=== PATIENT | male | born 2000 | race Caucasian/White ===

== ENCOUNTER 2023-08-07 14:52 | Outpatient (AMB) | payer BC, MEDICAID, SELFPAY ==
--- NOTE | 2023-08-07 14:57 | MHC.PC.OV ---
Vital Signs 08/07/23 15:00 Height 6 ft Weight 212 lb 8 oz BMI 28.8 BP 120/76 Blood Pressure Location Lt brachial Position Sitting Pulse 76 Pulse Source Pulse Oximeter Pulse Oximetry (%) 99 Oxygen Delivery Method Room Air Intake Visit Reasons: New patient-Requesting physical Intake Note: Patient is here as a new patient, looking to establish care. Allergies No Known Allergies Allergy (Verified 08/07/23 15:01) Medication List - Last Reconciled 08/07/23 by Star Chris MD aripiprazole 2 mg PO DAILY desvenlafaxine ER 100 mg PO DAILY Tobacco use date assessed: 08/07/23 Dental Screening Dental Screen Date: 08/07/23 Did you have a dental visit in the last 12 months?: Yes Did you have a dental problem in the last 6 months where you did not have access to dental care?: No Was dental information given to patient?: Patient has dentist HPI New patient-Requesting physical HPI Details New Patient? ?? Prior PCP:?Dr Sanches Last office visit/CPE:? > 1 yr Acute issue(s): Signif anxity & depression ?? PMHx:? nursing home Depression & Anxiety Dr Disla at [facility]. SurgHx:? [place] teeth FHx:? Pt not sure SocHx:? Nosmoker, EtOH Special occassions, MJ daily. No other drugs [facility] Medical History (Updated 08/07/23 @ 15:45 by Adalberto Parham) Anxiety Depression Surgical History (Updated 08/07/23 @ 15:08 by Lluvia Sosa [facility]) [place] teeth extracted Family History (Updated 08/07/23 @ 15:10 by Lluvia Sosa CMA) Brother Autism Mental health disorder Social History (Updated 08/07/23 @ 15:14 by Lluvia Sosa CMA) Household Members: Family Both parents involved: Yes Caregiver staying overnight: No Housing: House Are you a primary director of health care marketing to a significant other at home: No Do you presently have visiting nurse or other home services: No 75 years or older and lives alone: No Alcohol intake: current Alcohol intake frequency: holidays/special occasions only Alcohol type: hard liquor Comment: mixed drinks. Patient Tobacco Use Status: Never used Tobacco e-Cigarette/Vaping Use: Currently Using Frequency of e-Cigarette/Vaping Use: sometimes Use of substances other than those prescribed or required for medical reasons: No Have you been hit, kicked, punched, or otherwise hurt by someone within the past year? If so, by whom?: No Do you feel safe in your current relationship?: Yes Is there a partner from a previous relationship who is making you feel unsafe now?: No Are you made to feel afraid or neglected: No Special kunal needs: No Agree to transfusion: Yes Are you DNR?: No Advance Directives: No Advance Directives Information Provided: No Advance Directives on File: No Healthcare Proxy: No service: No Current occupational status: student Cognitive needs: No Hearing needs: No Vision needs: Yes Questionnaire PHQ-9 Over the last 2 weeks, how often have you been bothered by any of the following problems? 1. Little interest or pleasure in doing things: several days 2. Feeling down, depressed, or hopeless: nearly every day 3. Trouble falling or staying asleep, or sleeping too much: nearly every day 4. Feeling tired or having little energy: several days 5. Poor appetite or overeating: not at all 6. Feeling bad about yourself - or that you are a failure or have let yourself or your family down: several days 7. Trouble concentrating on things, such as reading the newspaper or watching television: several days 8. Moving or speaking so slowly that other people could have noticed. Or the opposite - being so fidgety or restless that you have been moving around a lot more than usual: several days 9. Thoughts that you would be better off or of hurting yourself in some way: not at all Total score: 11 Depression Screening Interpretation: Positive Depression Screening Done: Yes 41797 - PHQ-9 Billing: Yes Source: Developed by Drs. Slava Siddiqi, Idalmis Mccray, Ken Carbajal and colleagues, with an educational lianne from [email or web address]. Thrive Questionnaire Date Thrive assessed: 08/07/23 I am a: Patient What is your living situation today?: I have a steady place to live Within the past 12 months, did the food you bought not last and you didn't have the money to get more?: Sometimes True Within the past 12 months, did you worry whether your food would run out before you got money to buy more?: Sometimes True Do you have trouble paying for medicines?: No Do you have trouble getting transportation to medical appointments?: No Do you have trouble paying your heating and electricity bill?: No Do you have trouble taking care of your child, family member or friend?: No Do you have trouble with day-to-day activities such as bathing, preparing meals, shopping, managing finances, etc.?: Yes Are you currently unemployed and looking for a job?: Yes Are you interested in more education?: Yes THRIVE Score: 2 AUDIT C Alcohol Use Questionnaire (AUDIT-C) 1. How often do you have a drink containing alcohol?: Monthly or less 2. How many drinks containing alcohol do you have on a typical day when you are drinking?: 3 or 4 3. How often do you have six or more drinks on one occasion?: Less than monthly Total Score: 3 ADIA-7 AMB Questionnaire ADIA-7 Date ADIA - 7 assessed: 08/07/23 Feeling nervous, anxious, or on edge: 1 = Several days Not being able to stop or control worryin = Several days Worrying too much about different things: 3 = Nearly every day Trouble relaxin = Nearly every day Being so restless that it is hard to sit still: 0 = Not at all Becoming easily annoyed or irritable: 3 = Nearly every day Feeling afraid as if something awful might happen: 0 = Not at all Total ADIA-7 score (0-4 normal; 5-9 mild; 10-14 moderate; 15-21 severe): 11 Source: Developed by Drs. Slava Siddiqi, Idalmis Mccray, Ken Carbajal and colleagues, with an educational lianne from [email or web address]. ADIA-7 Assessment Billing ADIA-7 Assessment Tool: ADIA-7 Assessment 71480 Review of Systems Const Denies chills, Denies fatigue, Denies fever(s), Denies headache(s) and Denies weakness ENT Denies dizziness and Denies headache(s) Card Denies chest pain, Denies lightheadedness, Denies dyspnea and Denies other (Palpitations) Resp Denies cough, Denies dyspnea, Denies wheezing and Denies other ( shortness of breath) Musc Denies numbness and Denies tingling Neuro Denies dizziness, Denies headache(s), Denies numbness, Denies tingling, Denies paresthesias and Denies weakness Psych Reports anxiety and Reports depression Endo Denies fatigue Aller/Immun Denies wheezing Physical exam (Primary Care) Vital Signs: Last Vital Signs Pulse 76 08/07/23 15:00 BP 120/76 08/07/23 15:00 Pulse Ox 99 08/07/23 15:00 Oxygen Delivery Method Room Air 08/07/23 15:00 BMI result Body Mass Index 28.8 Tobacco/Smoking Status: Tobacco use Status Tobacco use date assessed 08/07/23 08/07/23 15:16 Patient Tobacco Use Status Never used Tobacco 08/07/23 15:16 e-Cigarette/Vaping Use Currently Using 08/07/23 15:16 PHQ-9: PHQ-9 Score PHQ-9: Total score 11 08/07/23 15:24 Depression Screening Interpretation: Positive Thrive Assessment: Date of Thrive Assessment Date Thrive assessed 08/07/23 08/07/23 15:24 Const General: no acute distress and well developed Nutritional Appearance: well nourished Orientation/consciousness: patient oriented x3 [facility] Head: Yes normocephalic and Yes atraumatic Eyes General: appearance normal, both eyes and all related structures Pupils: Equal, round and reactive pupils present EOM: EOMs intact bilaterally Resp Effort & Inspection: normal respiratory effort Auscultation: clear to auscultation bilaterally Cardio Rate: regular rate Rhythm: regular rhythm Heart sounds: S1 normal heart sound present, S2 normal heart sound present, no gallops, no murmurs and no rubs Neuro General: patient oriented x3 and gait normal Cranial nerves: Yes Equal, round and reactive pupils present Psych Other: Depressed affect, no eye contact, depressed posture Affect: No normal affect Assessment and Plan Assessment & Plan (1) Depression with anxiety: Code(s): F41.8 - Other specified anxiety disorders Plan: Significantly?depressed?affect?with?poor?eye?contact,?depressed?posture?and?paucity?of?speech?and?movement. He?is?on?Desvenlafaxine?and?aripiprazole. He?has?tried?TMS?in?the?past?which?was?helpful?and?his?mom?and?psych?med?provider?are?working?on?getting?additional?treatments. He?has?had?a?therapist?in?the?past?and?I?offered?to?make?a?referral?but?he?declines?this?for?now.??Make?sure?he?understands?he?can?request?help?with?connection?to?a?therapist?at?any?time. Continue?medications?as?prescribed?and?follow-up?with?your?psych?med?provider. (2) Laboratory exam ordered as part of routine general medical examination: Code(s): Z00.00 - Encounter for general adult medical examination without abnormal findings Plan: Check?labs Orders: Orders Comprehensive [place]. Panel Fast Today Z00.00 - Encounter for general adult medical examination without abnormal findings Microalbumin, Random (w Creat) Today I10 - Essential (primary) hypertension Lipid Panel Today Z00.00 - Encounter for general adult medical examination without abnormal findings UA and rflx microscopic Today Z00.00 - Encounter for general adult medical examination without abnormal findings Hepatitis B,C Profile Today Z11.3 - Encounter for screening for infections with a predominantly sexual mode of transmission HIV Ab/Ag Today Z11.3 - Encounter for screening for infections with a predominantly sexual mode of transmission Complete Blood Count Auto Diff Today Z00.00 - Encounter for general adult medical examination without abnormal findings Hemoglobin A1c Today R73.01 - Impaired fasting glucose TSH reflex Free T4 Today Z00.00 - Encounter for general adult medical examination without abnormal findings CT NG by PCR Today Z11.3 - Encounter for screening for infections with a predominantly sexual mode of transmission Syphilis Screen Today Z11.3 - Encounter for screening for infections with a predominantly sexual mode of transmission Coding Level of Care Code New Pt Level 3 (38682) Diagnoses Depression with anxiety F41.8 Laboratory exam ordered as part of routine general medical examination Z00.00 Additional Codes ADIA-7 Assessment Billing - ADIA-7 Assessment Tool: ADIA-7 Assessment 36544 ([id number])
[2023-08-07 15:00] VITALS: BP 120/76; PULSE 76; O2SAT 99; BMI 28.8
== END 2023-08-07 15:54 | disposition home or self-care (01) ==
PROVIDERS: PCP Family Medicine; Visit Provider Family Medicine
DX: F41.8 Other specified anxiety disorders (principal)
CPT/HCPCS: 96127; 99203

== ENCOUNTER 2024-12-22 14:57 | Outpatient (AMB) | payer MEDICAID, SELFPAY ==
--- NOTE | 2024-12-22 14:59 | A.OFFPC_ITS ---
Vital Signs 12/22/24 15:09 Height 5 ft 10.59 in Weight 232 lb 4 oz BMI 32.8 BP 104/62 Blood Pressure Location Rt brachial Position Sitting Respiration 12 Pulse 74 Pulse Source Pulse Oximeter Temp 97.9 F Temp Source Oral Pulse Oximetry (%) 98 Oxygen Delivery Method Room Air Intake Visit Reasons: Annual PE Intake Note: Physical Relish Maker Required: No Allergies No Known Allergies Allergy (Verified 12/22/24 15:07) Medication List - Last Reconciled 12/22/24 by Star Chris MD No Known Home Meds Tobacco use date assessed: 12/22/24 Dental Screening Dental Screen Date: 12/22/24 Did you have a dental visit in the last 12 months?: Yes Did you have a dental problem in the last 6 months where you did not have access to dental care?: No Was dental information given to patient?: Patient has dentist HPI Annual PE HPI Details 24 y/o male presents for an extended exa m with f/u labs and health maint. No recent labs to review but pt notes he had gotten labs drawn. He notes he had seen some vitamin D deficiency. PHQ-9 18, ADIA-7 6 today. Reports mood disorder x10 years. Complaints of hair loss. [facility] Medical History (Updated 12/22/24 @ 15:42 by Adalberto Parham) Anxiety Depression Surgical History [place] teeth extracted Family History Brother Autism Mental health disorder Social History (Updated 12/22/24 @ 15:09 by Estela Jovel CMA) Household Members: Family Both parents involved: Yes Caregiver staying overnight: No Housing: House Are you a primary critical care physician assistant to a significant other at home: No Do you presently have visiting nurse or other home services: No 75 years or older and lives alone: No Alcohol intake: current Alcohol intake frequency: holidays/special occasions only Alcohol type: hard liquor Comment: mixed drinks. Patient Tobacco Use Status: Never used Tobacco e-Cigarette/Vaping Use: Currently Using Substance Use Type: Marijuana Special kunal needs: No Agree to transfusion: Yes service: No Current occupational status: unemployed Current occupation: Plans on going back to [employer] Cognitive needs: No Hearing needs: No Vision needs: Yes Questionnaire PHQ-9 Over the last 2 weeks, how often have you been bothered by any of the following problems? 1. Little interest or pleasure in doing things: several days 2. Feeling down, depressed, or hopeless: more than half the days 3. Trouble falling or staying asleep, or sleeping too much: more than half the days 4. Feeling tired or having little energy: nearly every day 5. Poor appetite or overeating: nearly every day 6. Feeling bad about yourself - or that you are a failure or have let yourself or your family down: nearly every day 7. Trouble concentrating on things, such as reading the newspaper or watching television: several days 8. Moving or speaking so slowly that other people could have noticed. Or the opposite - being so fidgety or restless that you have been moving around a lot more than usual: more than half the days 9. Thoughts that you would be better off or of hurting yourself in some way: several days Total score: 18 Depression Screening Interpretation: Positive Depression Screening Follow-up: In treatment Depression Screening Done: Yes 00819 - PHQ-9 Billing: Yes Source: Developed by Drs. Slava Siddiqi, Idalmis Mccray, Ken Carbajal and colleagues, with an educational lianne from [facility]. Thrive Questionnaire Date Thrive assessed: 12/19/24 I am a: Patient What is your living situation today?: I have a steady place to live Within the past 12 months, did the food you bought not last and you didn't have the money to get more?: Never true Within the past 12 months, did you worry whether your food would run out before you got money to buy more?: Never true Do you have trouble paying for medicines?: No Do you have trouble getting transportation to medical appointments?: No Do you have trouble paying your heating and electricity bill?: No Do you have trouble taking care of your child, family member or friend?: No Do you have trouble with day-to-day activities such as bathing, preparing meals, shopping, managing finances, etc.?: No Are you currently unemployed and looking for a job?: Yes Are you interested in more education?: Yes Please select the resources that you would like help with: Daily support, Job search/training and Education Currently or been in a relationship where the following occur: No concerns reported THRIVE Score: 0 AUDIT C Alcohol Use Questionnaire (AUDIT-C) 1. How often do you have a drink containing alcohol?: 2-4 times a month 2. How many drinks containing alcohol do you have on a typical day when you are drinking?: 3 or 4 3. How often do you have six or more drinks on one occasion?: Monthly Total Score: 5 ADIA-7 AMB Questionnaire ADIA-7 Date ADIA - 7 assessed: 12/22/24 Feeling nervous, anxious, or on edge: 1 = Several days Not being able to stop or control worryin = Several days Worrying too much about different things: 1 = Several days Trouble relaxin = Several days Being so restless that it is hard to sit still: 0 = Not at all Becoming easily annoyed or irritable: 1 = Several days Feeling afraid as if something awful might happen: 1 = Several days Total ADIA-7 score (0-4 normal; 5-9 mild; 10-14 moderate; 15-21 severe): 6 Source: Developed by Drs. Slava Siddiqi, Idalmis Mccray, Ken Carbajal and colleagues, with an educational lianne from [facility]. Review of Systems Const Denies chills, Denies fatigue, Denies fever(s), Denies headache(s) and Denies weakness Eyes Denies change in vision ENT Denies dizziness, Denies headache(s), Denies hearing loss, Denies nasal congestion, Denies sinus pain, Denies sinus pressure and Denies sore throat Card Denies chest pain, Denies lightheadedness, Denies dyspnea and Denies other (palpitations) Resp Denies cough, Denies dyspnea and Denies wheezing GI Denies abdominal pain, Denies melena, Denies hematochezia, Denies change in bowel habits, Denies dyspepsia and Denies nausea Denies hematuria and Denies dysuria Musc Denies abnormal gait, Denies myalgias, Denies arthralgias, Denies numbness and Denies tingling Skin/Breast Denies rash, Denies unusual bruising and Denies wounds Neuro Denies abnormal gait, Denies dizziness, Denies headache(s), Denies memory loss, Denies numbness, Denies Sensory deficit (Neuro), Denies tingling and Denies weakness Psych Reports anxiety, Reports depression and Denies memory loss Endo Denies cold intolerance, Denies fatigue, Denies heat intolerance, Denies polydi psia and Denies polyuria Jac/Lymph Denies easy bleeding and Denies easy bruising Aller/Immun Denies wheezing Physical exam (Primary Care) Vital Signs: Last Vital Signs Temp 97.9 F 12/22/24 15:09 Pulse 74 12/22/24 15:09 Resp 12 12/22/24 15:09 BP 104/62 12/22/24 15:09 Pulse Ox 98 12/22/24 15:09 Oxygen Delivery Method Room Air 12/22/24 15:09 BMI result Body Mass Index 32.8 Tobacco/Smoking Status: Tobacco use Status Tobacco use date assessed 12/22/24 12/22/24 15:01 Patient Tobacco Use Status Never used Tobacco 12/22/24 15:09 e-Cigarette/Vaping Use Currently Using 12/22/24 15:09 PHQ-9: PHQ-9 Score PHQ-9: Total score 18 12/22/24 15:23 Depression Screening Interpretation: Positive Depression Screening Follow-up: In treatment Thrive Assessment: Date of Thrive Assessment Date Thrive assessed 12/19/24 12/22/24 15:01 Currently or been in a relationship where the following occur: No concerns reported Const General: no acute distress, well developed, alert and awake Nutritional Appearance: well nourished Orientation/consciousness: patient oriented x3 [facility] Head: Yes normocephalic and Yes atraumatic Ears: hearing grossly normal bilaterally and TM's normal bilaterally General nose exam: Normal external nose present and Normal nares present Mouth: Normal oral and palatal mucosa present and moist mucous membranes Teeth and gingiva: dentition normal Throat: Yes posterior oropharynx normal Eyes General: appearance normal, both eyes and all related structures Pupils: Equal, round and reactive pupils present and Pupil accommodation reflex normal EOM: EOMs intact bilaterally Neck Neck: Yes normal visual inspection, Yes no lymphadenopathy and Yes trachea midline Thyroid: Thyroid normal Carotids: no bruits Lymphatic: no lymphadenopathy noted Chest Chest palpation & inspection: normal inspection of the chest Resp Effort & Inspection: normal respiratory effort Auscultation: clear to auscultation bilaterally Cardio Rate: regular rate Rhythm: regular rhythm Heart sounds: S1 normal heart sound present, S2 normal heart sound present, no gallops, no murmurs and no rubs Bruits: no abdominal aortic bruits and no carotid bruits GI Palpation (GI): No Abdominal aortic bruit present, Soft to palpation, nontender, No hepatosplenomegaly present and No Rebound tenderness present Auscultation: normal bowel sounds General: Yes no CVA tenderness Back/Spine/Pelvis Back: no CVA tenderness Cervical Spine: cervical ROM normal and No Cervical spine tenderness Thoracic/Lumbar Spine: thoraco-lumbar ROM normal, No pain with thoraco-lumbar ROM, No thoracic spinal tenderness and No lumbar spinal tenderness Skin Lesions: no lesions Rashes: no rashes Trauma: no lacerations or abrasions Wounds: no wounds Nails: normal Neuro General: patient oriented x3 Cranial nerves: Yes Equal, round and reactive pupils present Cognition (Neuro): normal cognition Gait exam (Neuro): Normal gait present Motor exam (neuro): 5/5 motor strength present throughout Sensory Exam: No Sensory deficit (Neuro) Deep tendon reflexes (DTR's): Right patellar reflex intensity grade: 2+ and Left patellar reflex intensity grade: 2+ Extrem General: Yes normal to inspection and No edema Psych Other: Significant depression with slumped posture, depressed affect, quiet volume of speech, poor eye contact Appearance: grossly normal Affect: normal affect Attitude: cooperative Thought process: Normal thought process present Coding Level of Care Code Est Pt Level 4 (48256) Diagnoses Depression with anxiety F41.8 Vitamin D deficiency E55.9 Hair loss L65.9 Adult general medical exam Z00.00 Additional Codes PHQ-9 - 15226 - PHQ-9 Billing: Yes ([id number]) Assessment & Plan Assessment & Plan (1) Depression with anxiety: Code(s): F41.8 - Other specified anxiety disorders Category: Medical Plan: Significant depression with physical signs such as slumped posture, paucity of speech and movement, client volume of speech and decreased eye contact. Patient denies any imminent plans of self-harm though does have thoughts of feeling he would be better off . He declines medications at this time. He has a therapist in his he weekly. He contracts for safety I let him know that he can talk to me about reconsidering medications He can also be refer [place] [facility] [place] Also advised regular exercise (2) Vitamin D deficiency: Code(s): E55.9 - Vitamin D deficiency, unspecified Category: Medical Plan: Patient notes that prior labs at an outside facility showed a vitamin-D deficiency Will check vitamin-D with upcoming labs and discussed with patient (3) Hair loss: Code(s): L65.9 - Nonscarring hair loss, unspecified Category: Medical Plan: Patient has concerns regarding hair loss 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 Panel Fast Today Z00.00 - Encounter for general adult medical examination without abnormal findings Complete Blood Count Auto Diff Today Z00.00 - Encounter for general adult medical examination without abnormal findings TSH reflex Free T4 Today Z00.00 - Encounter for general adult medical examination without abnormal findings UA CC w/rflx Micro + Cult Today Z00.00 - Encounter for general adult medical examination without abnormal findings Vitamin B12 and Folate Today E53.8 - Deficiency of other specified B group vitamins
[2024-12-22 15:09] VITALS: BP 104/62; PULSE 74; RESP 12; TEMP 36.6; O2SAT 98; BMI 32.8
== END 2024-12-22 15:41 | disposition home or self-care (01) ==
LOC: HO.HMCFM 14:58
PROVIDERS: PCP Family Medicine; Visit Provider Family Medicine
DX: F41.8 Other specified anxiety disorders (principal); E55.9 Vitamin D deficiency, unspecified; L65.9 Nonscarring hair loss, unspecified; Z00.00 Encounter for general adult medical examination without abnormal findings

== ENCOUNTER → 2024-12-22 14:57 | Outpatient (BNVA) | payer OTHER, MEDICAID, SELFPAY | PROVIDERS: PCP Family Medicine; Visit Provider Family Medicine | DX: Z00.00 Encounter for general adult medical examination without abnormal findings (principal); F41.8 Other specified anxiety disorders; E55.9 Vitamin D deficiency, unspecified; I10 Essential (primary) hypertension; L65.9 Nonscarring hair loss, unspecified; E53.8 Deficiency of other specified B group vitamins | CPT/HCPCS: 96127; 99212 ==